=== PATIENT | male | born 1975 | race African-American/Black ===

== ENCOUNTER 2017-05-13 10:49 | Emergency (ER) | payer BC ==
[2017-05-13 11:52] LABS: BASO % 0.4 % (0-6); EOS % 13.4 % (0-6); GRAN % 58.8 % (47-80); HEMATOCRIT 29.8 % (42.0-52.0); HEMOGLOBIN 9.5 gm/dl (14.0-18.0); LYMPH % 20.4 % (16-45); MEAN CELL VOLUME 79.5 fl (81-97); MEAN CORPUSCULAR HEMOGLOBIN 25.3 pg (27-33); MEAN CORPUSCULAR HGB CONC 31.9 g/dl (32-36); MEAN PLATELET VOLUME 10.5 fl (7.4-10.4); PLATELET COUNT 264 K/uL (130-400); RED BLOOD COUNT 3.75 M/uL (4.40-5.70); RED CELL DISTRIBUTION WIDTH 14.2 % (11.5-14.5); WHITE BLOOD COUNT W/O DIFF 9.9 K/uL (4.2-12.2)
--- NOTE | 2017-05-13 11:56 | Emergency Department Record ---
History of Present Illness - General Chief Complaint: Hypertension Stated Complaint: HIGH BP/TIGHTNESS IN HEAD Time Seen by Provider: 05/13/17 11:03 Source: Patient Mode of Arrival: Ambulatory Limitations: No limitations - History of Present Illness Initial Comments: The patient is here due to feeling weak and lightheaded for 3-4 days at home. He has had a mild FLOWERS but that has resolved now. He denies any CP, SOB, or JANETTE but feels like his BP is elevated. He has been taking his BP at home and it has been elevated. The patient has a hx of renal failure and is on PD. He does have a long hx of HTN. MD Complaint: Dizziness, Lightheadedness Onset/Timin -: Days(s) Timing: Gradual onset Description: Lightheadedness Improves With: Nothing Worsens With: Nothing Associated Symptoms: Denies other symptoms - Susana Coma Scale Eye Response: (4) Open spontaneously Motor Response: (6) Obeys commands Verbal Response: (5) Oriented [place] Total: 15 - Related Data Previous Rx's Medication Instructions Recorded Amlodipine Besylate/Benazepril 1 each PO DAILY #7 capsule 05/13/17 [Amlodipine-Benazepril 5-20 mg] Allergies Allergy/AdvReac Type Severity Reaction Status Date / Time No Known Drug Allergies Allergy Unverified 08/22/16 12:31 Travel Screening - Travel/Exposure Within Last 30 Days Have you traveled within the last 30 days?: No - Travel/Exposure Within Last Year Have you traveled outside the [place] in the last year?: No - Additonal Travel Details Have you been exposed to anyone with a communicable illness?: No - Travel Symptoms Symptom Screening: None Review of Systems Constitutional: Denies: Chills, Fever Eyes: Denies: Eye discharge ENT: Denies: Congestion Respiratory: Denies: Cough, Dyspnea Cardiovascular: Denies: Arrhythmia, Chest pain Past Medical History - SOCIAL HISTORY Smoking Status: Never smoker Alcohol Use: Rare Drug Use: Rare Drug Use Detail:: Marijuana - RESPIRATORY Hx Respiratory Disorders: No - CARDIOVASCULAR Hx Cardio Disorders: Yes Hx Hypertension: Yes (d/t polycystic renal disease) - NEURO Hx Neuro Disorders: No - GI Hx GI Disorders: No - Hx Genitourinary Disorders: Yes Hx Dialysis: Yes Hx Kidney Stones: Yes Hx Renal Disease: Yes (Polycystic renal disorder) Comment:: peritoneal dialysis at home - ENDOCRINE Hx Endocrine Disorders: Yes Hx Diabetes: Yes (Type II) - MUSCULOSKELETAL Hx Musculoskeletal Disorders: Yes Hx Gout: Yes - PSYCH Hx Psych Problems: Yes Hx Anxiety: Yes - HEMATOLOGY/ONCOLOGY Hx Hematology/Oncology Disorders: No Family Medical History Any Significant Family History?: No Hx Heart Disease: Father Hx HTN: Father Hx Kidney Disease: Father Hx Stroke: Mother Physical Exam - General General Appearance: Alert, Oriented x3, Cooperative, No acute distress - Head Head exam: Atraumatic, Normocephalic, Normal inspection - Eye Eye exam: Normal appearance, PERRL - ENT Throat exam: Normal inspection. negative: Tonsillar erythema, Tonsillar exudate - Neck Neck exam: Normal inspection, Full ROM. negative: Tenderness - Respiratory Respiratory exam: Normal lung sounds bilaterally. negative: Respiratory distress - Cardiovascular Cardiovascular Exam: Regular rate, Normal rhythm, Normal heart sounds - GI/Abdominal GI/Abdominal exam: Soft, Normal bowel sounds. negative: Tenderness - Extremities Extremities exam: Normal inspection, Full ROM, Normal capillary refill. negative: Tenderness - Neurological Neurological exam: Alert, Normal gait. negative: Abnormal gait, Motor sensory deficit Course Vital Signs 05/13/17 05/13/17 05/13/17 10:59 11:15 11:30 Temperature 97.9 F Pulse Rate 69 Pulse Rate [ 66 62 Pulse Ox Probe] Respiratory 16 16 16 Rate Blood Pressure 162/101 Blood Pressure 164/103 166/107 [Right Arm] Pulse Ox 100 100 100 - Reevaluation(s) Reevaluation #1: The patient is doing a lot better. He denies any FLOWERS, CP, SOB, or nausea. I did discuss the lab results with the patient and the need for F/U. 05/13/17 12:16 Medical Decision Making - Data Complexity MDM Data: Labs Ordered and/or Reviewed, EKG Ordered and/or Reviewed - Lab Data Result diagrams: 05/13/17 11:42 05/13/17 11:42 Lab Results 05/13/17 Range/Units 11:42 WBC 9.9 (4.2-12.2) K/uL RBC 3.75 L (4.40-5.70) M/uL Hgb 9.5 L (14.0-18.0) gm/dl Hct 29.8 L (42.0-52.0) % MCV 79.5 L (81-97) fl MCH 25.3 L (27-33) pg MCHC 31.9 L (32-36) g/dl RDW 14.2 (11.5-14.5) % Plt Count 264 (130-400) K/uL MPV 10.5 H (7.4-10.4) fl Gran % 58.8 (47-80) % Lymphocytes % 20.4 (16-45) % Monocytes % 7.0 (0-9) % Eosinophils % 13.4 H (0-6) % Basophils % 0.4 (0-6) % - EKG Data -: EKG Interpreted by Me EKG: No Acute Changes, Unchanged From Previous Disposition Disposition: Discharge Clinical Impression: Hypertension Qualifiers: Hypertension type: unspecified Qualified Code(s): I10 - Essential (primary) hypertension Disposition: Home, Self-Care Condition: (1) Good Instructions: Hypertension (ED) Additional Instructions: Please continue your regular medicines. Please see your Kidney doctor this week for recheck and to have the anemia rechecked. Return to the ER for any problems. Prescriptions: Amlodipine Besylate/Benazepril [Amlodipine-Benazepril 5-20 mg] 1 each PO DAILY # 7 capsule Forms: Patient Portal Access Time of Disposition: 12:19 Quality - Quality Measures Quality Measures: N/A - Blood Pressure Screening View Details: Yes Does Patient Have Any of the Following: No, Active Dx of HTN Blood Pressure Classification: Hypertensive Reading Systolic Measurement: 146 Diastolic Measurement: 101 Screening for High Blood Pressure: Patient Exclusion, Hx of HTN [G9744]
[2017-05-13 12:10] LABS: ALB/GLOB RATIO 1.1 (1.1-1.8); BILIRUBIN,TOTAL 0.2 mg/dL (0.2-1.0); CREATININE 6.1 mg/dL (0.7-1.2); TOTAL PROTEIN 7.6 g/dL (6.6-8.7)
== END 2017-05-13 12:33 | disposition home or self-care (01) ==
LOC: ER 10:49
DX: I12.0 Hypertensive chronic kidney disease with stage 5 chronic kidney disease or end stage renal disease (principal); E11.22 Type 2 diabetes mellitus with diabetic chronic kidney disease; N18.6 End stage renal disease; R42 Dizziness and giddiness; R53.1 Weakness; Z99.2 Dependence on renal dialysis; Q61.3 Polycystic kidney, unspecified
CPT/HCPCS: 80053; 85025; 93005; 93010; 99284

== ENCOUNTER 2017-08-26 14:57 | Emergency (ER) | payer BC ==
[2017-08-26] MEDS ORDERED: HYDROCODONE/APAP 7.5/325MG TABLET PO ONE (15:37)
--- NOTE | 2017-08-26 15:41 | Emergency Department Record ---
History of Present Illness - General Chief complaint: Lower Extremity Pain Stated complaint: GOUT Time Seen by Provider: 08/26/17 15:30 Source: Patient, Family Mode of Arrival: Ambulatory Limitations: No limitations - History of Present Illness Initial comments: 42 yo male presents with two concerns. He has had about 2 weeks of gradual increase in right first MT pain an swelling consistent with his gout. He has had gout since he developed renal failure several years ago. He has been off his Uloric for many months. He does PD. 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 He is able to fully flex his foot and extend the foot. No deformity at the achilles but it is tender. Not warm or red. He is dialyzing normally without any issues. Normal schedule and fluid. MD Complaint: Extremity pain, Joint pain, Joint swelling Onset/Timin -: Days(s) History of Same: Yes -: Yes Arthralgia Radiation: None Severity scale (1-10): 9 Consistency: Constant - Related Data Previous Rx's Medication Instructions Recorded Febuxostat [Uloric] 40 mg PO DAILY #30 tab 08/26/17 Hydrocodone/Acetaminophen [[place] 1 each PO Q6H #16 tablet 08/26/17 7.5-325 Tablet] Allergies Allergy/AdvReac Type Severity Reaction Status Date / Time No Known Drug Allergies Allergy Verified 08/26/17 15:05 Travel Screening - Travel/Exposure Within Last 30 Days Have you traveled within the last 30 days?: No - Travel/Exposure Within Last Year Have you traveled outside the [place] in the last year?: No - Additonal Travel Details Have you been exposed to anyone with a communicable illness?: No - Travel Symptoms Symptom Screening: None Review of Systems Constitutional: Denies: Chills, Fever, Malaise, Weakness Eyes: Denies: Eye discharge ENT: Denies: Congestion, Throat pain Respiratory: Denies: Cough, Dyspnea Cardiovascular: Denies: Chest pain, Syncope Endocrine: Denies: Fatigue Gastrointestinal: Denies: Abdominal pain, Diarrhea, Nausea, Vomiting Genitourinary: Denies: Dysuria, Frequency, Hematuria Musculoskeletal: Reports: Arthralgia, Joint swelling, Myalgia Skin: Denies: Bruising, Change in color, Rash Neurological: Denies: Headache, Numbness, Weakness Psychiatric: Denies: Anxiety Hematological/Lymphatic: Denies: Blood Clots, Easy bleeding, Easy bruising, Swollen glands Past Medical History - SOCIAL HISTORY Smoking Status: Never smoker Alcohol Use: Rare Drug Use: None - RESPIRATORY Hx Respiratory Disorders: No - CARDIOVASCULAR Hx Cardio Disorders: Yes Hx Hypertension: Yes (d/t polycystic renal disease) - NEURO Hx Neuro Disorders: No - GI Hx GI Disorders: No - Hx Genitourinary Disorders: Yes Hx Dialysis: Yes Hx Kidney Stones: Yes Hx Renal Disease: Yes (Polycystic renal disorder) Comment:: peritoneal dialysis at home - ENDOCRINE Hx Endocrine Disorders: Yes Hx Diabetes: Yes (Type II) - MUSCULOSKELETAL Hx Musculoskeletal Disorders: Yes Hx Gout: Yes - PSYCH Hx Psych Problems: Yes Hx Anxiety: Yes - HEMATOLOGY/ONCOLOGY Hx Hematology/Oncology Disorders: No Family Medical History Any Significant Family History?: No Hx Heart Disease: Father Hx HTN: Father Hx Kidney Disease: Father Hx Stroke: Mother Physical Exam - General General Appearance: Alert, Oriented x3, Cooperative, No acute distress Limitations: No limitations - Head Head exam: Atraumatic, Normal inspection - Eye Eye exam: Normal appearance. negative: Conjunctival injection, Scleral icterus - ENT ENT exam: Normal exam, Mucous membranes moist Ear exam: Normal external inspection Nasal Exam: Normal inspection Mouth exam: Normal external inspection - Neck Neck exam: Normal inspection - Cardiovascular Cardiovascular Exam: Regular rate, Normal rhythm, Normal heart sounds Peripheral Pulses: 2+: Dorsalis Pedis (R), Dorsalis Pedis (L) - Rectal Rectal exam: Deferred - exam: Deferred - Extremities Extremities exam: Tenderness. negative: Normal inspection Image of Feet: 1 - intact achilles, normal inspection, full ROM but tender to palpation 2 - mild warmth, redness and swelling, tender to palpation - Neurological Neurological exam: Alert, Oriented X3 - Psychiatric Psychiatric exam: Normal affect, Normal mood - Skin Skin exam: Erythema Course Vital Signs 08/26/17 15:03 Temperature 98.9 F Pulse Rate [ 94 H Pulse Ox Probe] Respiratory 20 Rate Blood Pressure 166/101 [Left Arm] Pulse Ox 98 - Reevaluation(s) Reevaluation #1: 08/26/17 15:43 The examination is consistent with gout on the left first MT The right demonstrates tenderness with normal appearance and examination of the right posterior foot. This will be placed in a supportive boot We discussed close follow up with the PCP for both his gout and his heel/ achilles pain Disposition Disposition: Discharge Clinical Impression: Gout Qualifiers: Gout site: foot Gout etiology: unspecified cause Chronicity: acute Laterality: left Qualified Code(s): M10.9 - Gout, unspecified Achilles tendonitis Qualifiers: Laterality: right Qualified Code(s): M76.61 - Achilles tendinitis, right leg Disposition: Home, Self-Care Condition: (1) Good Instructions: Gout (ED) Additional Instructions: Call your doctors tomorrow to schedule a recheck of your gout and your achilles pain Be seen immediately if worse or any new concerns Prescriptions: Febuxostat [Uloric] 40 mg PO DAILY #30 tab Hydrocodone/Acetaminophen [[place] 7.5-325 Tablet] 1 each PO Q6H #16 tablet Forms: Patient Portal Access Time of Disposition: 15:48 Quality - Quality Measures Quality Measures: N/A - Blood Pressure Screening Does Patient Have Any of the Following: No Blood Pressure Classification: Hypertensive Reading Systolic Measurement: 166 Diastolic Measurement: 101 Screening for High Blood Pressure: < Pre-Hypertensive BP, F/U Documented > [ G8950] Pre-Hypertensive Follow-up Interventions: Referral to alternative/primary care provider.
== END 2017-08-26 16:06 | disposition home or self-care (01) ==
LOC: ER 14:57
DX: M10.371 Gout due to renal impairment, right ankle and foot (principal); M1A.3720 Chronic gout due to renal impairment, left ankle and foot, without tophus (tophi); M76.61 Achilles tendinitis, right leg; N18.6 End stage renal disease; I13.11 Hypertensive heart and chronic kidney disease without heart failure, with stage 5 chronic kidney disease, or end stage renal disease; Q61.3 Polycystic kidney, unspecified
CPT/HCPCS: 99282

== ENCOUNTER 2019-02-19 14:20 | Emergency (ER) | payer BC ==
--- NOTE | 2019-02-19 14:36 | Emergency Department Record ---
History of Present Illness - General Chief complaint: Flank Pain Stated complaint: LT FLANK/ABN PAIN Time Seen by Provider: 02/19/19 14:26 Source: Patient Mode of Arrival: Ambulatory Limitations: No limitations - History of Present Illness Initial comments: 44 yo male presents with a history of about 4 days of left flank pain. The pain starts in the back and radiates around to the front. He reports prior history of renal stones. He does state there is some similarity with this pain and prior stones. No fevers. He does have ESRD on HD. No fevers. No dysuria. no hematuria. No rash. The pain is sharp and radiates around the abdomen at times . He is on the transplant list through [facility] Complaint: Other (Left flank pain) -: Days(s) (4) Location: Left flank Radiation: LLQ Severity: Moderate Quality: Aching, Sharp Consistency: Intermittent Improves with: Medication (Tylenol) Other Reports: Denies other symptoms - Related Data Home Medications Medication Instructions Recorded Confirmed Last Taken Ferric Citrate [Auryxia] 210 mg PO ASDIR 02/19/19 02/19/19 Unknown Ferric Citrate [Auryxia] 210 mg PO ASDIR 02/19/19 02/19/19 02/19/19 Minoxidil 2.5 mg PO TID 02/19/19 02/19/19 02/19/19 Previous Rx's Medication Instructions Recorded Azithromycin [Zithromax] 250 mg PO DAILY #6 tab 02/19/19 Allergies Allergy/AdvReac Type Severity Reaction Status Date / Time No Known Drug Allergies Allergy Verified 02/19/19 15:25 Review of Systems Constitutional: Denies: Chills, Fever, Malaise, Weakness Eyes: Denies: Eye discharge, Eye pain ENT: Denies: Congestion, Throat pain Respiratory: Denies: Cough, Dyspnea Cardiovascular: Denies: Chest pain, Syncope Endocrine: Denies: Fatigue Gastrointestinal: Reports: Abdominal pain. Denies: Diarrhea, Nausea, Vomiting Genitourinary: Denies: Dysuria, Frequency, Hematuria Musculoskeletal: Reports: Back pain. Denies: Arthralgia, Myalgia Skin: Denies: Bruising, Change in color, Rash Neurological: Denies: Headache Psychiatric: Denies: Anxiety Hematological/Lymphatic: Denies: Easy bleeding, Easy bruising Past Medical History - SOCIAL HISTORY Smoking Status: Never smoker Drug Use: None - RESPIRATORY Hx Respiratory Disorders: No - CARDIOVASCULAR Hx Cardio Disorders: Yes Hx Hypertension: Yes (d/t polycystic renal disease) - NEURO Hx Neuro Disorders: No - GI Hx GI Disorders: No - Hx Genitourinary Disorders: Yes Hx Dialysis: Yes Hx Kidney Stones: Yes Hx Renal Disease: Yes (Polycystic renal disorder) Comment:: peritoneal dialysis at home - ENDOCRINE Hx Endocrine Disorders: Yes Hx Diabetes: Yes (Type II) - MUSCULOSKELETAL Hx Musculoskeletal Disorders: Yes Hx Gout: Yes - PSYCH Hx Psych Problems: Yes Hx Anxiety: Yes - HEMATOLOGY/ONCOLOGY Hx Hematology/Oncology Disorders: No Family Medical History Hx Heart Disease: Father Hx HTN: Father Hx Kidney Disease: Father Hx Stroke: Mother Physical Exam - General General Appearance: Alert, Oriented x3, Cooperative, No acute distress Limitations: No limitations - Head Head exam: Atraumatic, Normal inspection - Eye Eye exam: Normal appearance, PERRL. negative: Conjunctival injection, Scleral icterus - ENT ENT exam: Normal exam, Mucous membranes moist Ear exam: Normal external inspection Nasal Exam: Normal inspection Mouth exam: Normal external inspection - Neck Neck exam: Normal inspection - Respiratory Respiratory exam: Normal lung sounds bilaterally. negative: Respiratory distress - Cardiovascular Cardiovascular Exam: Regular rate, Normal rhythm, Normal heart sounds - GI/Abdominal GI/Abdominal exam: Soft, Normal bowel sounds, Other (Non tender abdomen). negative: Distended, Guarding, Rebound, Rigid, Tenderness - Rectal Rectal exam: Deferred - exam: Deferred - Extremities Extremities exam: Normal inspection, Other (fistula is intact). negative: Pedal edema - Back Back exam: Reports: Normal inspection (no rash), CVA tenderness (L), Full ROM, Paraspinal tenderness, Tenderness. Denies: CVA tenderness (R) - Neurological Neurological exam: Alert, Oriented X3 - Psychiatric Psychiatric exam: Normal affect, Normal mood - Skin Skin exam: negative: Rash Course - Reevaluation(s) Reevaluation #1: 02/19/19 14:54 The UA was reviewed. No signs of infection. 02/19/19 15:09 The CMP reviewed. Chronic renal failure noted K is 4.9 02/19/19 15:[address] was discussed with the radiologist. Many chronic findings since the 2014 with some new changes. Polycystic kidneys seem advanced. 5cm lower left renal pole increase from 4cm in 2015. Recommend outpatient MRI. NO hydronephrosis or stone. Non specific inflammation of the kidney (normal UA, normal WBC, and normal temperature), bilateral small pleural effusions left greater than right. The results were discussed with the patient. We discussed the labs, UA and CT. He is aware of the chronic findings and new findings as well as the need to have the left renal mass evaluated with MRI. He will call Dr Mneeses for an appointment. The results were also discussed with Dr Meneses his PCP. We discussed the presentation, CT, UA. Dr Meneses will assist in follow up of the left renal mass with MRI. We discussed starting Zithromax for the cough and effusion. We discussed close follow up and reasons to return to the ED if worse or not improving. 02/19/19 16:43 Medical Decision Making - Lab Data Result diagrams: 02/19/19 14:20 02/19/19 14:20 Disposition Disposition: Discharge Clinical Impression: Chronic renal failure, Renal mass, Pleural effusion, Left flank pain Disposition: Home, Self-Care Condition: (1) Good Instructions: Pleural Effusion (ED), Flank Pain (ED) Additional Instructions: Call Dr Meneses for the next available appointment He will follow up the left kidney mass and assist with scheduling and MRI as recommended by the radiologist Return if you have uncontrolled pain, fever, short of breath, or any other concerns Take the Zithromax as directed until gone Prescriptions: Azithromycin [Zithromax] 250 mg PO DAILY #6 tab Forms: Patient Portal Access Time of Disposition: 16:04 Quality - Quality Measures Quality Measures: N/A - Blood Pressure Screening Does Patient Have Any of the Following: Active Dx of HTN Blood Pressure Classification: Hypertensive Reading Systolic Measurement: 171 Diastolic Measurement: 99 Screening for High Blood Pressure: Patient Exclusion, Hx of HTN [G9744]
[2019-02-19 14:37] LABS: URINE APPEARANCE CLEAR; URINE BILIRUBIN NEGATIVE (NEGATIVE); URINE BLOOD MODERATE (NEGATIVE); URINE COLOR YELLOW; URINE GLUCOSE (UA) NEGATIVE (NEGATIVE); URINE KETONE NEGATIVE (NEGATIVE); URINE LEUKOCYTE ESTERASE TRACE (NEGATIVE); URINE NITRITE NEGATIVE (NEGATIVE); URINE UROBILINOGEN 0.2 E.U./dL (0.20 - 1.00)
[2019-02-19 14:51] LABS: ABSOLUTE NEUTROPHIL COUNT 7.63; BASO % 0.3 % (0-6); EOS % 0.8 % (0-6); GRAN % 74.7 % (47-80); HEMATOCRIT 41.2 % (42.0-52.0); HEMOGLOBIN 13.2 gm/dl (14.0-18.0); LYMPH % 14.2 % (16-45); MEAN CELL VOLUME 75.5 fl (81-97); MEAN PLATELET VOLUME 10.4 fl (7.4-10.4); PLATELET COUNT 272 K/uL (130-400); RED BLOOD COUNT 5.46 M/uL (4.40-5.70); RED CELL DISTRIBUTION WIDTH 18.7 % (11.5-14.5); WHITE BLOOD COUNT W/O DIFF 10.2 K/uL (4.2-12.2)
[2019-02-19 14:53] LABS: URINE BACTERIA NONE SEEN; URINE EPITHELIAL CELLS 0 - 2 (FEW); URINE RBC 0 - 2 (NONE SEEN); URINE WBC NONE SEEN (0-2/hpf)
[2019-02-19 14:54] LABS: MEAN CORPUSCULAR HEMOGLOBIN 24.1 pg (27-33)
[2019-02-19 15:00] LABS: CREATININE 13.8 mg/dL (0.7-1.2)
--- NOTE | 2019-02-20 09:09 | CT SCAN REPORT ---
EXAM: CT OF THE ABDOMEN AND PELVIS WITHOUT CONTRAST HISTORY: LEFT FLANK PAIN, HISTORY OF STONES AND RENAL FAILURE. TECHNIQUE: Axial CT scan of the abdomen and pelvis was obtained without oral or IV contrast. Comparison: CT of the abdomen and pelvis 09/03/14. FINDINGS: No definite calcified gallstones are seen within the gallbladder. Both kidneys appear enlarged and also again appear to be largely replaced with multiple predominantly low attenuation cysts although with a relatively dense mass in the lower pole of the left kidney, also present previously and presumably just a dense cyst, although has increased in size somewhat in the interval. This exophytic lower pole left renal mass measures about 5.5 cm in diameter today and about 4.1 cm previously. If not previously documented as a hyperdense cyst, follow-up MRI would be suggested to exclude a solid mass in this location in particular. Pole to pole renal measurements of the kidneys obtained on the coronal reformatted sequences are approximately 20 cm bilaterally today and on the prior study were approximately 16 cm bilaterally. No definite intrarenal calculus identified on either side and no obvious hydronephrosis seen on either side. The upper right ureteral calculus noted on the prior exam is no longer apparent with no definite hydroureter on either side today. As such the nondilated ureters are somewhat difficult to follow in their course throughout the retroperitoneum and pelvis, but no definite ureteral calculus seen on either side and no bladder calculus evident. Evaluation of the bowel and viscera is very limited without oral or IV contrast. Given this limitation, note is made of a single small low attenuation mass far laterally in the left lobe of the liver also present previously, measuring only about 7 mm in size and incompletely evaluated without IV contrast although probably a small cyst perhaps associated with the adult polycystic renal disease evident in the kidneys. No definite splenic, adrenal, or pancreatic mass identified. There are slightly prominent inguinal nodes bilaterally measuring about 12 mm in maximum short axis on the right and 13 mm on the left. These were present previously as well and so may be of no clinical significance. I believe the appendix is identified as a normal caliber structure with no appendicitis evident. There is probably a small amount of free fluid in the pelvis. No definite free intraperitoneal air identified. Very small umbilical hernia containing adipose tissue, but no bowel. There is a new small to moderate sized left pleural effusion with some left basilar atelectasis or infiltrate compared to the prior study. There is also a small amount of new atelectasis or infiltrate with a very small pleural effusion in the right base. Note is made of some new thickening of the lateral retroperitoneal fascial planes at the level of the mid to lower aspect of the left kidney. This is a nonspecific finding although commonly seen with inflammation. The possibility of acute pyelonephritis involving the polycystic left renal kidney could not be excluded with this appearance. Correlation with urinalysis is suggested. Multilevel facet joint arthropathy in the lumbar spine. Spurring along the anterior aspect of the sacroiliac joints. IMPRESSION: 1. MARKED ENLARGEMENT OF THE KIDNEYS BILATERALLY INCREASED SOMEWHAT FROM 07/03/15 WITH MEASUREMENTS ABOVE. THE KIDNEYS APPEAR TO BE LARGELY REPLACED BY ENUMERABLE PREDOMINANTLY CYSTIC MASSES PRESUMABLY REPRESENTING ADULT POLYCYSTIC RENAL DISEASE. THERE IS A MORE SOLID DENSITY MASS IN THE LOWER POLE OF THE LEFT KIDNEY WHICH HAS INCREASED IN SIZE FROM THE PRIOR STUDY WELL. THIS MAY JUST REPRESENT A DENSE RENAL CYST, BUT IF NOT PREVIOUSLY DOCUMENTED SUCH, FOLLOW-UP MRI WOULD BE SUGGESTED TO EXCLUDE A PROGRESSING SOLID MASS LOWER POLE LEFT KIDNEY. 2. THICKENING OF THE RETROPERITONEAL FASCIAL PLANES LATERAL TO THE MID TO LOWER ASPECT OF THE LEFT KIDNEY IS NONSPECIFIC ALTHOUGH CAN BE SEEN WITH INFECTION AND CORRELATION TO THE POSSIBILITY OF PYELONEPHRITIS INVOLVING THE LEFT KIDNEY IS SUGGESTED. NO DEFINITE HYDRONEPHROSIS OR URETERAL CALCULUS ON EITHER SIDE. 3. THERE ARE NEW BIBASILAR PLEURAL EFFUSIONS WITH BIBASILAR ATELECTASIS OR INFILTRATE LEFT GREATER THAN RIGHT COMPARED WITH 07/03/15. 4. PROBABLE TINY HEPATIC CYST IN THE LATERAL ASPECT OF THE LEFT LOBE ALSO PRESENT PREVIOUSLY. 5. SMALL UMBILICAL HERNIA CONTAINING ADIPOSE TISSUE, BUT NO BOWEL. 6. MULTILEVEL DEGENERATIVE CHANGE IN THE SPINE. JOB NUMBER: [id number] [facility]
== END 2019-02-19 16:14 | disposition home or self-care (01) ==
LOC: ER 14:20
DX: E11.22 Type 2 diabetes mellitus with diabetic chronic kidney disease (principal); I12.0 Hypertensive chronic kidney disease with stage 5 chronic kidney disease or end stage renal disease; N28.89 Other specified disorders of kidney and ureter; N18.6 End stage renal disease; R10.32 Left lower quadrant pain; R11.10 Vomiting, unspecified; J90 Pleural effusion, not elsewhere classified; Q61.3 Polycystic kidney, unspecified; Z99.2 Dependence on renal dialysis
CPT/HCPCS: 99284 ×2; 96376; 96374; 85025; 80048; 81001; 74176; J1170

== ENCOUNTER 2019-02-19 20:33 | Emergency (ER) | payer BC ==
[2019-02-19] MEDS ORDERED: HYDROMORPHONE HCL 2 MG/ML VIAL IVP ONE ×2 (21:05→22:07)
[2019-02-19 21:21] LABS: BASO % 0.3 % (0-6); EOS % 0.9 % (0-6); GRAN % 81.3 % (47-80); HEMATOCRIT 36.4 % (42.0-52.0); HEMOGLOBIN 11.9 gm/dl (14.0-18.0); LYMPH % 7.3 % (16-45); MEAN CELL VOLUME 75.1 fl (81-97); MEAN CORPUSCULAR HEMOGLOBIN 24.5 pg (27-33); MEAN CORPUSCULAR HGB CONC 32.7 g/dl (32-36); MEAN PLATELET VOLUME 10.2 fl (7.4-10.4); MONO % 10.2 % (0-9); PLATELET COUNT 242 K/uL (130-400); RED BLOOD COUNT 4.85 M/uL (4.40-5.70); RED CELL DISTRIBUTION WIDTH 18.5 % (11.5-14.5); WHITE BLOOD COUNT W/O DIFF 11.2 K/uL (4.2-12.2)
[2019-02-19 21:35] LABS: CREATININE 14.9 mg/dL (0.7-1.2)
--- NOTE | 2019-02-19 22:06 | Emergency Department Record ---
History of Present Illness - General Chief Complaint: Back Pain/Injury Stated Complaint: RETURN /BACK PAIN/VOMITING Time Seen by Provider: 02/19/19 20:48 Source: Patient Mode of Arrival: Ambulatory Limitations: No limitations - History of Present Illness Initial Comments: pt returns for increasing pain in the left flank and vomiting. he was here [address] at that time showed severe increasing polycystic kidneys with a new mass on the left kidney and pleural effusions with fluid around the parechyma of the kidney. he missed dialysis today. Onset/Timin -: Days(s) Similar Symptoms Previously: Yes Place: Home Radiation: Abdomen Severity: Severe Severity scale (1-10): 10 Quality: Dull, Sharp Consistency: Constant Improves With: None Worsens With: Movement Context: History of kidney stones, Other Associated Symptoms: Abdominal pain, Nausea/vomiting Treatments Prior to Arrival: Cold therapy, Heat therapy, NSAIDS - Related Data Previous Rx's Medication Instructions Recorded Azithromycin [Zithromax] 250 mg PO DAILY #6 tab 02/19/19 Allergies Allergy/AdvReac Type Severity Reaction Status Date / Time No Known Drug Allergies Allergy Verified 02/19/19 20:41 Travel Screening - Travel/Exposure Within Last 30 Days Have you traveled within the last 30 days?: No - Travel/Exposure Within Last Year Have you traveled outside the [place] in the last year?: No - Additonal Travel Details Have you been exposed to anyone with a communicable illness?: No - Travel Symptoms Symptom Screening: None Review of Systems Reviewed: No additional complaints except as noted below Constitutional: Reports: As per HPI. Denies: Chills, Fever, Malaise, Night sweats, Weakness, Weight change Eyes: Reports: As per HPI. Denies: Eye discharge, Eye pain, Photophobia, Vision change ENT: Reports: As per HPI. Denies: Congestion, Dental pain, Ear pain, Epistaxis, Hearing loss, Throat pain Respiratory: Reports: As per HPI. Denies: Cough, Dyspnea, Hemoptysis, Stridor, Wheezes Cardiovascular: Reports: As per HPI. Denies: Arrhythmia, Chest pain, Dyspnea on exertion, Edema, Murmurs, Orthopnea, Palpitations, Paroxysmal nocturnal dyspnea, Rheumatic Fever, Syncope Endocrine: Reports: As per HPI. Denies: Fatigue, Heat or cold intolerance, Polydipsia, Polyuria Gastrointestinal: Reports: As per HPI, Abdominal pain, Nausea, Vomiting. Denies: Constipation, Diarrhea, Hematemesis, Hematochezia, Melena Genitourinary: Reports: As per HPI. Denies: Dysuria, Frequency, Hematuria, Incontinence, Retention, Testicular pain, Testicular mass, Urgency Musculoskeletal: Reports: As per HPI. Denies: Arthralgia, Back pain, Gout, Joint swelling, Myalgia, Neck pain Skin: Reports: As per HPI. Denies: Bruising, Change in color, Change in hair/nails, Lesions, Pruritus, Rash Neurological: Reports: As per HPI. Denies: Abnormal gait, Confusion, Headache, Numbness, Paresthesias, Seizure, Tingling, Tremors, Vertigo, Weakness Psychiatric: Reports: As per HPI. Denies: Anxiety, Auditory hallucinations, Depression, Homicidal thoughts, Suicidal thoughts, Visual hallucinations Hematological/Lymphatic: Reports: As per HPI. Denies: Anemia, Blood Clots, Easy bleeding, Easy bruising, Swollen glands Past Medical History - SOCIAL HISTORY Smoking Status: Never smoker Alcohol Use: Rare Drug Use: None - RESPIRATORY Hx Respiratory Disorders: No - CARDIOVASCULAR Hx Cardio Disorders: Yes Hx Hypertension: Yes (d/t polycystic renal disease) - NEURO Hx Neuro Disorders: No - GI Hx GI Disorders: No - Hx Genitourinary Disorders: Yes Hx Dialysis: Yes Hx Kidney Stones: Yes Hx Renal Disease: Yes (Polycystic renal disorder) Comment:: peritoneal dialysis at home - ENDOCRINE Hx Endocrine Disorders: Yes Hx Diabetes: Yes (Type II) - MUSCULOSKELETAL Hx Musculoskeletal Disorders: Yes Hx Gout: Yes - PSYCH Hx Psych Problems: Yes Hx Anxiety: Yes - HEMATOLOGY/ONCOLOGY Hx Hematology/Oncology Disorders: No Family Medical History Any Significant Family History?: No Hx Heart Disease: Father Hx HTN: Father Hx Kidney Disease: Father Hx Stroke: Mother Physical Exam - General General Appearance: Alert, Oriented x3, Cooperative, Moderate distress - Head Head exam: Normal inspection - Eye Eye exam: Normal appearance, PERRL, EOMI Pupils: Normal accommodation - ENT ENT exam: Normal exam, Mucous membranes moist, Normal external ear exam, Normal orophraynx Ear exam: Normal external inspection. negative: External canal tenderness Nasal Exam: Normal inspection. negative: Discharge, Sinus tenderness Mouth exam: Normal external inspection, Tongue normal Teeth exam: Normal inspection. negative: Dental caries Throat exam: Normal inspection. negative: Tonsillar erythema, Tonsillar exudate - Neck Neck exam: Normal inspection, Full ROM. negative: Tenderness - Respiratory Respiratory exam: Normal lung sounds bilaterally. negative: Respiratory distress - Cardiovascular Cardiovascular Exam: Regular rate, Normal rhythm, Normal heart sounds - GI/Abdominal GI/Abdominal exam: Soft, Normal bowel sounds, Tenderness - Rectal Rectal exam: Deferred - exam: Deferred - Extremities Extremities exam: Normal inspection, Full ROM, Normal capillary refill. negative: Tenderness - Back Back exam: Reports: Normal inspection, Full ROM. Denies: Muscle spasm, Rash noted, Tenderness - Neurological Neurological exam: Alert, Normal gait, Oriented X3, Reflexes normal - Psychiatric Psychiatric exam: Normal affect, Normal mood - Skin Skin exam: Dry, Intact, Normal color, Warm Course Vital Signs 02/19/19 20:41 Temperature 98.3 F Pulse Rate 95 H Respiratory 20 Rate Blood Pressure 146/85 Pulse Ox 98 - Reevaluation(s) Reevaluation #1: 02/19/19 22:11 d/w dr yoder, nephrology, and dr lake. pt is not feeling better. more d ilaudid ordered Medical Decision Making - Lab Data Result diagrams: 02/19/19 21:15 02/19/19 21:15 Lab Results 02/19/19 02/19/19 Range/Units 21:15 21:15 WBC 11.2 (4.2-12.2) K/uL RBC 4.85 (4.40-5.70) M/uL Hgb 11.9 L (14.0-18.0) gm/dl Hct 36.4 L (42.0-52.0) % MCV 75.1 L (81-97) fl MCH 24.5 L (27-33) pg MCHC 32.7 (32-36) g/dl RDW 18.5 H (11.5-14.5) % Plt Count 242 (130-400) K/uL MPV 10.2 (7.4-10.4) fl Gran % 81.3 H (47-80) % Lymphocytes % 7.3 L (16-45) % Monocytes % 10.2 H (0-9) % Eosinophils % 0.9 (0-6) % Basophils % 0.3 (0-6) % Absolute Neutrophils Not Reportable Sodium 139 (136-145) mmol/L Potassium 4.9 H (3.4-4.5) mmol/L Chloride 98 (98-107) mmol/L Carbon Dioxide 24.0 (22-29) mmol/L Anion Gap 17.0 H (7-16) BUN 69 H (6-20) mg/dL Creatinine 14.9 H (0.7-1.2) mg/dL Estimated GFR 4 mL/min Random Glucose 114 H (74-109) mg/dL Calcium 9.1 (8.6-10.0) mg/dL Disposition Disposition: Transfer Clinical Impression: Left kidney mass Renal failure Qualifiers: Renal failure chronicity: chronic Chronic kidney disease stage: on chronic dialysis Qualified Code(s): N18.6 - End stage renal disease; Z99.2 - Dependence on renal dialysis Disposition: Acute Care Hospital Transfer Transfer To: [facility] Reason For Transfer: needs nephrology Accepting Physician: julissa lake and paresh Time Discussed w/Accepting Physician: 22:12 Quality - Quality Measures Quality Measures: N/A - Blood Pressure Screening Does Patient Have Any of the Following: No Blood Pressure Classification: Pre-Hypertensive BP Reading Systolic Measurement: 146 Diastolic Measurement: 85 Screening for High Blood Pressure: < Pre-Hypertensive BP, F/U Documented > [G8950] Pre-Hypertensive Follow-up Interventions: Follow-up with rescreen every year.
== END 2019-02-19 22:41 | disposition short-term general hospital (02) ==
LOC: ER 20:33
DX: E11.22 Type 2 diabetes mellitus with diabetic chronic kidney disease (principal); I12.0 Hypertensive chronic kidney disease with stage 5 chronic kidney disease or end stage renal disease; N18.6 End stage renal disease; N28.89 Other specified disorders of kidney and ureter; J90 Pleural effusion, not elsewhere classified; R11.10 Vomiting, unspecified; R10.32 Left lower quadrant pain; Q61.3 Polycystic kidney, unspecified; Z99.2 Dependence on renal dialysis
CPT/HCPCS: 80048; 85025

== ENCOUNTER 2019-08-03 07:16 | Emergency (ER) | payer MEDICARE, BC ==
[2019-08-03] MEDS ORDERED: BUMETANIDE IV 0.25 MG/ML VIAL IVP ONE (07:29)
--- NOTE | 2019-08-03 07:39 | Emergency Department Record ---
History of Present Illness - General Chief Complaint: Shortness of breath Stated Complaint: JANETTE Time Seen by Provider: 08/03/19 07:23 Source: Patient Mode of Arrival: EMS - History of Present Illness Initial Comments: SOB progressively worseover 3 weeks.No chest pain and he is retaining fluid in his legs and slight cough. Katia is ESRD and on hemodialysis on MWD since September 2018 and peritoneal dialysis for 2 years prior to that. PMH Hypertension and renal failure.Never smoked cigs and no heart disease. PSH fistula placed in the left arm Jul. Patient has Broviac catheter in the right chest. Primary Dr Meneses - Related Data Home Medications Medication Instructions Recorded Confirmed Last Taken Vit B Complx C/Folic Acid/Zinc 1 each PO DAILY 08/03/19 08/03/19 Unknown [Renaplex Tablet] Allergies Allergy/AdvReac Type Severity Reaction Status Date / Time No Known Drug Allergies Allergy Verified 08/03/19 07:18 Travel Screening - Travel/Exposure Within Last 30 Days Have you traveled within the last 30 days?: No Review of Systems Reviewed: No additional complaints except as noted below Constitutional: Reports: As per HPI. Denies: Chills, Fever, Malaise, Night sweats, Weakness, Weight change Eyes: Reports: As per HPI. Denies: Eye discharge, Eye pain, Photophobia, Vision change ENT: Reports: As per HPI. Denies: Congestion, Dental pain, Ear pain, Epistaxis, Hearing loss, Throat pain Respiratory: Reports: As per HPI, Dyspnea. Denies: Cough, Hemoptysis, Stridor, Wheezes Cardiovascular: Reports: As per HPI. Denies: Arrhythmia, Chest pain, Dyspnea on exertion, Edema, Murmurs, Orthopnea, Palpitations, Paroxysmal nocturnal dyspnea, Rheumatic Fever, Syncope Endocrine: Reports: As per HPI. Denies: Fatigue, Heat or cold intolerance, Polydipsia, Polyuria Gastrointestinal: Reports: As per HPI. Denies: Abdominal pain, Constipation, Diarrhea, Hematemesis, Hematochezia, Melena, Nausea, Vomiting Genitourinary: Reports: As per HPI. Denies: Dysuria, Frequency, Hematuria, Incontinence, Retention, Testicular pain, Testicular mass, Urgency Musculoskeletal: Reports: As per HPI. Denies: Arthralgia, Back pain, Gout, Joint swelling, Myalgia, Neck pain Skin: Reports: As per HPI. Denies: Bruising, Change in color, Change in hair/nails, Lesions, Pruritus, Rash Neurological: Reports: As per HPI. Denies: Abnormal gait, Confusion, Headache, Numbness, Paresthesias, Seizure, Tingling, Tremors, Vertigo, Weakness Psychiatric: Reports: As per HPI. Denies: Anxiety, Auditory hallucinations, Depression, Homicidal thoughts, Suicidal thoughts, Visual hallucinations Hematological/Lymphatic: Reports: As per HPI. Denies: Anemia, Blood Clots, Easy bleeding, Easy bruising, Swollen glands Past Medical History - SOCIAL HISTORY Smoking Status: Never smoker Alcohol Use: None Drug Use: None - RESPIRATORY Hx Respiratory Disorders: No - CARDIOVASCULAR Hx Cardio Disorders: Yes Hx Hypertension: Yes (d/t polycystic renal disease) - NEURO Hx Neuro Disorders: No - GI Hx GI Disorders: No - Hx Genitourinary Disorders: Yes Hx Dialysis: Yes Hx Kidney Stones: Yes Hx Renal Disease: Yes (Polycystic renal disorder) Comment:: [facility] (2019), Peritoneal prior - ENDOCRINE Hx Endocrine Disorders: Yes Hx Diabetes: Yes (Type II) - MUSCULOSKELETAL Hx Musculoskeletal Disorders: Yes Hx Gout: Yes - PSYCH Hx Psych Problems: Yes Hx Anxiety: Yes - HEMATOLOGY/ONCOLOGY Hx Hematology/Oncology Disorders: No Family Medical History Any Significant Family History?: Yes Hx Heart Disease: Father Hx HTN: Father Hx Kidney Disease: Father Hx Stroke: Mother Physical Exam - General General Appearance: Alert, Oriented x3, Cooperative, No acute distress - Head Head exam: Normal inspection - Eye Eye exam: Normal appearance, PERRL Pupils: Normal accommodation - ENT ENT exam: Normal exam, Mucous membranes moist, Normal external ear exam, Normal orophraynx, TM's normal bilaterally Ear exam: Normal external inspection. negative: External canal tenderness Nasal Exam: Normal inspection. negative: Discharge, Sinus tenderness Mouth exam: Normal external inspection, Tongue normal Teeth exam: Normal inspection. negative: Dental caries Throat exam: Normal inspection. negative: Tonsillar erythema, Tonsillar exudate - Neck Neck exam: Normal inspection, Full ROM. negative: Tenderness - Respiratory Respiratory exam: Rales. negative: Respiratory distress - Cardiovascular Cardiovascular Exam: Regular rate, Normal rhythm, Other (Heart murmer) - GI/Abdominal GI/Abdominal exam: Soft, Normal bowel sounds. negative: Tenderness - Rectal Rectal exam: Deferred - exam: Deferred - Extremities Extremities exam: Normal inspection, Full ROM, Normal capillary refill. negative: Tenderness - Back Back exam: Reports: Normal inspection, Full ROM. Denies: Muscle spasm, Rash noted, Tenderness - Neurological Neurological exam: Alert, Normal gait, Oriented X3, Reflexes normal - Psychiatric Psychiatric exam: Normal affect, Normal mood - Skin Skin exam: Dry, Intact, Normal color, Warm Course Vital Signs 08/03/19 07:21 Temperature 98.1 F Pulse Rate 99 H Respiratory 18 Rate Blood Pressure 202/123 Pulse Ox 100 - Reevaluation(s) Reevaluation #1: patient said he lost alot of blood with his shunt revision at [facility] and [facility] [place] and needed three units of blood. Rectal exam done today and brown stool and hemoccult negative 08/03/19 09:10 Reevaluation #2: discussed case with Dr Smith and will transfer to a bed at [facility] 08/03/19 09:25 Medical Decision Making - Data Complexity MDM Data: Labs Ordered and/or Reviewed (potassium 5.9, hg 6.9, D dimer 4.9), X- Ray Ordered and/or Reviewed (chest xray cardiomegaly), EKG Ordered and/or Reviewed (NSR No acute changes) - Lab Data Result diagrams: 08/03/19 08:12 08/03/19 08:12 Disposition Clinical Impression: Cardiomegaly, Elevated d-dimer Edema Qualifiers: Edema type: generalized Qualified Code(s): R60.1 - Generalized edema Renal failure Qualifiers: Renal failure chronicity: acute on chronic Acute renal failure type: unspecified Chronic kidney disease stage: on chronic dialysis Qualified Code(s): N17.9 - Acute kidney failure, unspecified; N18.9 - Chronic kidney disease, unspecified; Z99.2 - Dependence on renal dialysis Anemia Qualifiers: Anemia type: unspecified type Qualified Code(s): D64.9 - Anemia, unspecified Hypertension Qualifiers: Hypertension type: essential hypertension Qualified Code(s): I10 - Essential (primary) hypertension Forms: Patient Portal Access Quality - Quality Measures Quality Measures: N/A - Blood Pressure Screening Does Patient Have Any of the Following: No, Active Dx of HTN Blood Pressure Classification: Hypertensive Reading Systolic Measurement: 202 Diastolic Measurement: 123 Screening for High Blood Pressure: Patient Exclusion, Hx of HTN [G9744]
[2019-08-03] MEDS ORDERED: BUMETANIDE 1 MG TABLET PO SCH (08:15)
[2019-08-03 08:19] LABS: ABSOLUTE NEUTROPHIL COUNT 5.84; HEMATOCRIT 22.9 % (42.0-52.0); MEAN CELL VOLUME 82.1 fl (81-97); MEAN CORPUSCULAR HEMOGLOBIN 24.7 pg (27-33); MEAN CORPUSCULAR HGB CONC 30.1 g/dl (32-36); MEAN PLATELET VOLUME 9.1 fl (7.4-10.4); PLATELET COUNT 257 K/uL (130-400); RED BLOOD COUNT 2.79 M/uL (4.40-5.70); RED CELL DISTRIBUTION WIDTH 21.4 % (11.5-14.5); WHITE BLOOD COUNT W/O DIFF 8.3 K/uL (4.2-12.2)
[2019-08-03] MEDS ORDERED: HEPARIN SODIUM FLUSH 100 UNITS/ML SYR 5ML IVP ONE (08:19)
[2019-08-03 08:28] LABS: HEMOGLOBIN 6.9 gm/dl (14.0-18.0)
[2019-08-03 08:31] LABS: CREATININE 14.3 mg/dL (0.7-1.2); PARTIAL THROMBOPLASTIN TIME 41.4 SECONDS (24.5-39.1)
[2019-08-03 08:53] LABS: HYPOCHROMIA 1+
--- NOTE | 2019-08-03 09:02 | RADIOLOGY REPORT ---
EXAMINATION: Two View Chest Radiographs EXAM DATE: 08/03/2019 8:58 AM TECHNIQUE: Frontal and lateral views INDICATION: SOB COMPARISON: None ENCOUNTER: Not applicable FINDINGS: Cardiomegaly. Pulmonary vascular congestion. Right IJ permacath tip projects over right atrium. Small bilateral pleural effusions. No pneumothorax IMPRESSION: 1. CHF 2. Small bilateral pleural effusions Dictated by: Kenrick Barajas MD on 08/03/2019 8:58 AM. .
== END 2019-08-03 10:01 | disposition short-term general hospital (02) ==
LOC: ER 07:16
DX: I51.7 Cardiomegaly (principal); N17.9 Acute kidney failure, unspecified; E11.22 Type 2 diabetes mellitus with diabetic chronic kidney disease; N18.9 Chronic kidney disease, unspecified; R79.89 Other specified abnormal findings of blood chemistry; D64.9 Anemia, unspecified; R60.1 Generalized edema; Z99.2 Dependence on renal dialysis
CPT/HCPCS: 71046; 80048; 84484; 85027; 85379; 85730; 93005; 93010; 96374; 96375; 99285